=== PATIENT | male | born 1950 | race Hispanic/Latino ===

== ENCOUNTER 2019-04-14 13:26 | Outpatient (CLI) | payer OTHER | END 2019-04-14 23:41 | disposition home or self-care (01) | LOC: MRI 13:26 | DX: M67.471 Ganglion, right ankle and foot (principal); M25.571 Pain in right ankle and joints of right foot ==

== ENCOUNTER 2020-04-03 09:32 | Outpatient (CLI) | payer OTHER | END 2020-04-03 22:04 | disposition home or self-care (01) | LOC: MRI 09:32 | DX: M72.2 Plantar fascial fibromatosis (principal); M79.671 Pain in right foot; M77.31 Calcaneal spur, right foot ==

== ENCOUNTER 2020-05-01 10:29 | Outpatient (CLI) | payer OTHER | END 2020-05-01 19:50 | disposition home or self-care (01) | LOC: RAD 10:29 | DX: Z01.89 Encounter for other specified special examinations (principal) ==